=== PATIENT | male | born 1995 | race Native Hawaiian/Other Pacific Islander ===

== ENCOUNTER 2019-09-17 18:42 | Emergency (ER) | payer OTHER ==
[~2019-09-17] VITALS: Ht 188 cm; Wt 117.9 kg
[~2019-09-17 18:42] MED LIST: TRAM50TA PO
[2019-09-17 20:10] LABS: PLATELET COUNT 201 K/uL (142-355)
[2019-09-17 20:20] LABS: POTASSIUM 3.4 mmol/L (3.6-5.2)
[2019-09-17 21:45] VITALS: BP 166/94; TEMP 97.3
== END 2019-09-17 21:45 | disposition home or self-care (01) ==
LOC: ED 18:42
PROVIDERS: Family Medicine
DX: M54.89 Other dorsalgia (principal)
CPT/HCPCS: 80053; 81000; 85027; J1885